=== PATIENT | female | born 1995 | race Caucasian/White ===

== ENCOUNTER 2020-04-27 11:55 | Emergency (ER) | payer SELFPAY ==
[2020-04-27 12:15] VITALS: BP 115/70; PULSE 92; RESP 16; TEMP 36.9; O2SAT 98; BMI 23.9
--- NOTE | 2020-04-27 12:26 | XR_ITS ---
WS: [id number] 3 views of the left first finger, 04/27/2020 Clinical Data: dog bite, cellulitis Comparison: None. Findings: No fractures or dislocations are seen. The soft tissues are normal. The epiphyses and joint spaces ar e not remarkable. No radiopaque foreign body is seen. XR/XR finger LT min 2V [id number] Impression: Negative left thumb.
[2020-04-27 12:27] VITALS: RESP 18
--- NOTE | 2020-04-27 12:35 | W.ED.EXTPRO ---
HPI - Extremity Problem General: Chief complaint: Extremity Injury, Upper Stated complaint: DOGBITE Time Seen by Provider: 04/27/20 12:20 History of Present Illness: HPI Narrative: Patient bit in her left thumb by her dog who is up-to-date on vaccinations but this happened about 3 days ago she has 3 puncture wounds now thumb is swollen and red. MD Complaint: extremity pain and joint pain Onset (ago): day(s) Pain Consistency: constant Location: left and upper extremity Severity scale (1-10): 7 Quality: aching Radiation: none Relieving factors: nothing Exacerbating factors: range of motion Associated symptoms: Reports no associated symptoms; Deny chest pain, fever(s) or rash Review of Systems Const: Denies: fever(s), chills or body aches Eyes: Denies: change in vision or blurry vision ENMT: Denies: throat pain or nasal congestion Card: Denies: chest pain or dyspnea on exertion Resp: Denies: dyspnea, productive cough or non-productive cough GI: Denies: abdominal pain, nausea or vomiting Musc: Denies: extremity pain Skin/Breast: Reports: other (Dog bite to left thumb now swollen red and tender); Denies: rash Neuro: Denies: headache(s) Psych: Denies: anxiety or depression Remington/Lymph: Denies: easy bruising PFSH ED PFSH: Social History (Updated 04/27/20 @ 12:19 by Liliana Zhu RN) Smoking and tobacco status: current every day smoker Current gender identity: Female Female Reproductive History: Date of last menstrual period: 03/21/20 Physical Exam Const: COMMON NORMALS: no acute distress, average body habitus and patient oriented x3 HENMT: COMMON NORMALS: normocephalic HEAD & SCALP: normal to inspection and normocephalic FACE & SINUS: normal facial exam Eye: COMMON NORMALS: conjunctivae normal GENERAL EYE: appearance normal, both eyes and all related structures CONJUNCTIVA: Yes conjunctivae normal Neck/C-Spine: COMMON NORMALS: no JVD Chest: COMMONS NORMALS: normal inspection of the chest Resp: COMMON NORMALS: normal respiratory effort and clear to auscultation bilaterally AUSCULTATION: clear to auscultation bilaterally Cardio: COMMON NORMALS: no JVD, regular rate and regular rhythm RATE: regular rate RHYTHM: regular rhythm GI: COMMON NORMALS: Normal to inspection, nondistended, normoactive bowel sounds present Extremity: COMMON NORMALS: normal to inspection and full ROM Neuro: COMMON NORMALS: patient oriented x3 Skin: OTHER: Left thumb has erythema extending from the tip down to below the base of the thumb is swollen has 3 puncture wounds on it has some drainage coming from the MIP joint area on the dorsal surface patient will does not want a move it due to discomfort. Course Vital Signs: Vital signs: Vital Signs Temperature 98.5 F 04/27/20 12:15 Pulse Rate 92 04/27/20 12:15 Respiratory Rate 18 04/27/20 12:27 Blood Pressure 115/70 04/27/20 12:15 Pulse Oximetry 98 04/27/20 12:15 Coding Level of Care Code ED Clinical Laboratory Technician for Javier Fragoso
[2020-04-27] MEDS: lidocaine 1% INJ 20 mL 2.1 ML INJECTION (12:39)
[2020-04-27] MEDS: cefTRIAXone 1,000 mg SDV 1000 MG IM (12:39)
[2020-04-27] MEDS: HYDROcodone-acetaminophen 7.5-325 mg Tablet 1 TAB PO (12:39)
[2020-04-27 13:35] VITALS: RESP 18
== END 2020-04-27 13:36 | disposition home or self-care (01) ==
PROVIDERS: Emergency Provider Nurse Practitioner Family
DX: S61.052A Open bite of left thumb without damage to nail, initial encounter (principal); W54.0XXA Bitten by dog, initial encounter; F17.210 Nicotine dependence, cigarettes, uncomplicated
CPT/HCPCS: 12345; 73140; 87070; 87077; 96372; 99281; 99283; J0696

== ENCOUNTER 2020-05-09 10:01 | Emergency (ER) | payer SELFPAY ==
[2020-05-09 10:16] VITALS: BP 117/91; PULSE 101; RESP 17; TEMP 36.3; O2SAT 99; BMI 24.7
--- NOTE | 2020-05-09 10:33 | ED_ITS ---
HPI - Extremity Problem General: Chief complaint: Skin/Abscess/Foreign Body Stated complaint: DOG BITE 2 WEEKS AGO Time Seen by Provider: 05/09/20 10:05 Source: patient Mode of arrival: ambulatory Limitations: no limitations History of Present Illness: HPI Narrative: Patient is a 24-year-old female who presents to ED today for evaluation of a dog bite to her left thumb. Patient was initially seen at our facility approximately 2 weeks ago after the incident and was placed on Augmentin. XR of the finger at the time was normal. Documentation does state there was some redness to her finger during that visit. She states she has now completed the course of the Augmentin and finger continues to be red and swollen. She is not able to bend her finger and is having trouble performing daily functions such as putting her hair in a ponytail. Complaint: extremity pain and extremity swelling Onset (ago): day(s) Location: left and upper extremity Radiation: none Relieving factors: nothing Exacerbating factors: range of motion and palpation Associated symptoms: Reports no associated symptoms Review of Systems Musc: Reports: extremity pain and extremity swelling Skin/Breast: Reports: other (puncture wounds to L thumb) Neuro: Denies: numbness in extremities, weakness in extremities or sensory changes PFSH ED PFSH: Social History (Updated 04/27/20 @ 12:19 by Liliana Zhu RN) Smoking and tobacco status: current every day smoker Current gender identity: Female Female Reproductive History: Date of last menstrual period: 03/21/20 Physical Exam Const: COMMON NORMALS: no acute distress, average body habitus, patient oriented x3, no limitations, healthy appearing, alert and well nourished Extremity: OTHER: pt with mild erythema to dorsal and volar surfaces of the proximal phalanx of her L thumb; she has multiple puncture wounds to both surfaces-puncture wound on dorsal surface with scant drainage; she has no ROM of her interphalangeal joint; she has pain with passive extension and flexion Neuro: COMMON NORMALS: patient oriented x3 and no sensory deficits noted SENSORIUM/ORIENTATION: Yes alert Skin: OTHER: see extremity assessment Course Vital Signs: Vital signs: Vital Signs Temperature 97.3 F L 05/09/20 10:16 Pulse Rate 101 H 05/09/20 10:16 Respiratory Rate 17 05/09/20 10:16 Blood Pressure 117/91 05/09/20 10:16 Pulse Oximetry 99 05/09/20 10:16 MDM - Extremity (Nontraumatic) MDM Narrative: Medical decision making narrative: We have contacted [facility] with Dr. Edwards sex offender treatment professional-their office was made aware of pts findings and will contact her soon with appointment date and time. Discharge Plan Discharge Patient Disposition: Home Clinical Impression: Dog bite of left thumb with infection Qualifiers: Encounter type: subsequent encounter Qualified Code(s): S61.052D - Open bite of left thumb without damage to nail, subsequent encounter Condition: Stable Prescriptions: New metronidazole [Flagyl] 500 mg tablet 500 mg PO BID 7 Days Qty: 14 RF: 0 sulfamethoxazole-trimethoprim [Bactrim DS] 800-160 mg tablet 1 tab PO BID 7 Days Qty: 14 RF: 0 No Action Augmentin 875-125 mg tablet 1 tab PO BID Qty: 14 RF: 0 hydrocodone-acetaminophen 5-325 mg tablet 1 tab PO Q6H PRN (Reason: pain) Qty: 14 RF: 0 Discharge Orders: Discharge Order (Routine); Ordered 05/09/20 Ordered By: Codie De La Rosa Activity Restrictions/Additional Instructions: As discussed [facility] should be contacting you very soon to set you up with your appointment for follow-up. If you have not heard from them by tomorrow evening please contact the ED so we can further work on this. Coding Level of Care Code ED Sweatband Decorating Machine Operator for Javier Fwkavon Exam Expanded Problem Focused
[2020-05-09 11:23] VITALS: BP 122/59; PULSE 98; RESP 16; O2SAT 98
--- NOTE | 2020-05-15 09:19 | DCPLANNER ---
heavy equipment service manager had message to speak with patient about getting established with a primary care physician. heavy equipment service manager called [phone], unable to speak with patient, left a voicemail for patient to return window caser phone call.
== END 2020-05-09 11:25 | disposition home or self-care (01) ==
PROVIDERS: Emergency Provider Physician Assistant
DX: S61.052A Open bite of left thumb without damage to nail, initial encounter (principal); W54.0XXA Bitten by dog, initial encounter; F17.210 Nicotine dependence, cigarettes, uncomplicated
CPT/HCPCS: 12345; 99282

== ENCOUNTER 2022-06-02 20:52 | Emergency (ER) | payer MEDICAID, SELFPAY ==
[2022-06-02 21:15] VITALS: BP 119/85; PULSE 78; RESP 16; TEMP 36.4; O2SAT 99
--- NOTE | 2022-06-02 23:45 | W.ED.DENTAL ---
HPI - Dental/Oral General: Chief complaint: Dental/Oral Stated complaint: Tooth Abscess Time Seen by Provider: 06/02/22 23:35 History of Present Illness: 26-year-old female patient presents to the emergency department with right upper dental pain. Patient states this is been ongoing for 3 days and she woke up today with some mild facial swelling. Patient denies any fever. Patient states she was unable to get into her dentist. Associated symptoms: Denies ear or mastoid pain, fever(s), odynophagia or tongue swelling Review of Systems Const: Denies: fever(s), chills, body aches, change in appetite, change in weight, fatigue, malaise or diaphoresis Eyes: Denies: change in vision, blurry vision, blind spots, photophobia, eye discomfort, eye discharge, eye redness, floaters or seeing flashes ENMT: Denies: throat pain, uvular edema, enlarged tonsils, odynophagia, hoarseness, mouth pain, swelling of lips/tongue, oral sores, bleeding gums, dry mouth, ear or mastoid pain, ear discharge, change in hearing, tinnitus, disequilibrium, nasal discharge, nasal congestion, post nasal drip or sinus pain Card: Denies: chest pain, palpitations, irregular heart rhythm, edema, swelling of feet/ankles, lightheadedness, syncope, pre-syncope, dyspnea on exertion, orthopnea, leg pain with exertion or acrocyanosis Resp: Denies: dyspnea, productive cough, non-productive cough, wheezing, stridor, pain on inspiration, change in phlegm color, hemoptysis or chest congestion GI: Denies: abdominal pain, nausea, vomiting, hematemesis, dysphagia, diarrhea, constipation, GI cramping, change in bowel habits or rectal pain : Denies: flank pain, difficulty voiding, dysuria, urinary frequency, urinary urgency, urinary hesitancy or hematuria Musc: Denies: neck pain, back pain, extremity pain, extremity swelling, joint pain, joint swelling, joint redness, joint warmth or deformity Skin/Breast: Denies: rash, pruritus, erythema, sores, new lesions, changes in skin color or dry skin Neuro: Denies: headache(s), numbness in extremities, weakness in extremities, sensory changes, lack of coordination, difficulty walking, frequent falls, dizziness, vertigo, confusion, behavioral changes, Slurred speech present, difficulty communicating thoughts or seizure-like activity Psych: Denies: anxiety, depression, suicidal ideation or homicidal ideation Endo: Denies: polyuria, polydipsia, tired all the time, cold intolerance, excessive sweating, flushing, hot flashes or heat intolerance Remington/Lymph: Denies: easy bruising, easy bleeding, petechiae, purpura, enlarged lymph nodes or tender lymph nodes All/Imm: Denies: urticaria, throat swelling, tongue swelling, facial swelling, acute wheezing or itchy eyes PFSH ED PFSH: Social History Smoking and tobacco status: current every day smoker Current gender identity: Female Female Reproductive History: Date of last menstrual period: 03/21/20 Physical Exam Const: COMMON NORMALS: no acute distress, patient oriented x3, healthy appearing and well nourished GENERAL APPEARANCE: cooperative, comfortable, well kempt and well developed; not ill appearing ORIENTATION/CONSCIOUSNESS: Yes awake HENMT: COMMON NORMALS: normocephalic, hearing grossly normal bilaterally, external ears normal, EAC's normal, TM's normal bilaterally, Normal external nose present, Normal nasal mucous membranes and turbinates present and moist oral mucous membranes HEAD & SCALP: normal to inspection and normocephalic FACE & SINUS: normal facial exam, sinuses nontender and face symmetric NOSE: Normal external nose present, Normal nares present, Normal nasal mucous membranes and turbinates present, No nasal discharge present and Abnormal external nose present EXTERNAL EAR: Yes external ears normal and Yes mastoids normal EXTERNAL AUDITORY CANAL: EAC's normal TYMPANIC MEMBRANE: TM's normal bilaterally MOUTH: Normal oral and palatal mucosa present, lip normal, tongue normal and Normal salivary glands and ducts present THROAT: no uvular edema Eye: COMMON NORMALS: Equal, round and reactive pupils present, EOMs intact bilaterally, conjunctivae normal, no scleral icterus and no papilledema GENERAL EYE: appearance normal, both eyes and all related structures EYELID: eyelids normal CONJUNCTIVA: Yes conjunctivae normal SCLERA: sclerae normal CORNEA: Yes corneas normal PUPIL: Yes Equal, round and reactive pupils present DIRECT OPHTHALMOSCOPY: Yes no papilledema Neck/C-Spine: COMMON NORMALS: full ROM, no lymphadenopathy, supple, no JVD and Thyroid normal GENERAL: Yes normal visual inspection and Yes trachea midline THYROID: Thyroid normal CERVICAL SPINE: Yes cervical ROM normal Lymph: LYMPHATIC: no lymphadenopathy noted and no lymphedema noted Resp: COMMON NORMALS: normal respiratory effort, No retractions, No use of accessory muscles and clear to auscultation bilaterally EFFORT & INSPECTION: Yes able to speak in complete sentences and Yes symmetric chest movement AUSCULTATION: clear to auscultation bilaterally Cardio: COMMON NORMALS: no JVD, regular rate and regular rhythm RATE: regular rate RHYTHM: regular rhythm Neuro: COMMON NORMALS: patient oriented x3 and CN's II-XII intact bilaterally Psych: COMMON NORMALS: mental status grossly normal, Normal thought process present, cooperative, normal affect, speech normal, activity/motor behavior normal, denies hallucinations, denies homicidal ideation and denies suicidal ideation APPEARANCE: Yes grossly normal and Yes well kempt ATTITUDE: Yes calm ACTIVITY/MOTOR BEHAVIOR: Yes appropriate eye contact SPEECH: Yes normal speech THOUGHT PROCESS: Normal thought process present THOUGHT CONTENT: Yes Normal thought content present ATTENTION/CONCENTRATION: Yes attention grossly intact MEMORY/COGNITION: Yes memory grossly intact INSIGHT: Good insight present (Psych) JUDGEMENT: Good judgement present (Psych) Skin: COMMON NORMALS: no rashes or lesions noted, no wounds, turgor normal, no jaundice, no petechiae and no mottling GENERAL SKIN EXAM: no rashes or lesions noted and turgor normal Course Vital Signs: Vital signs: Vital Signs Temperature 97.6 F 06/02/22 21:15 Pulse Rate 78 06/02/22 21:15 Respiratory Rate 16 06/02/22 21:15 Blood Pressure 119/85 06/02/22 21:15 Pulse Oximetry 99 06/02/22 21:15 Oxygen Delivery Me thod 06/02/22 21:15 [facility] - Dental/Oral Medical Decision Making 26-year-old female patient presents to the emergency department with right upper dental pain. Patient states this is been ongoing for 3 days and she woke up today with some mild facial swelling. Patient denies any fever. Patient states she was unable to get into her dentist. Patient is well-appearing nontoxic and in no acute distress. Patient is well-appearing nontoxic and in no acute distress. Patient does have some mild facial swelling noted to the right side. Patient does have extensive dental caries noted throughout. Patient does have erythema and pain to the right upper gum. There is no obvious abscess there is no area of fluctuation or pointing noted. Patient does not have any mastoid tenderness. Patient does not have any evidence of Tj's angina. I will place patient on clindamycin at this time and have her follow-up with her dentist Discharge Plan Discharge Patient Disposition: Home Condition: Stable Prescriptions: New clindamycin HCl 300 mg capsule 300 mg PO Q6H 7 Days Qty: 28 0RF No Action Augmentin 875-125 mg tablet 1 tab PO BID Qty: 14 0RF hydrocodone-acetaminophen 5-325 mg tablet 1 tab PO Q6H PRN (Reason: pain) Qty: 14 0RF Discharge Orders: Discharge ED (Routine); Ordered 06/02/22 Ordered By: Susan Price Discharge Diet: Advance as tolerated Discharge Activity: Increase activity as tolerated Patient Instructions: Opioid Safety, Pain Management, Toothache (ED) Activity Restrictions/Additional Instructions: Please take medication as prescribed. Please return to the ER with any worsening of condition. Please follow-up with dentist in the next 3 to 5 days. Coding Level of Care Code ED Laboratory Technology Teacher for Javier Fragoso
[2022-06-03] VITALS: BP 119/85; PULSE 78; RESP 16; TEMP 36.4; O2SAT 99
[2022-06-03] MEDS: clindamycin 150 mg Capsule 300 MG PO (00:09)
[2022-06-03] MEDS: HYDROcodone-acetaminophen 5-325 mg Tablet 1 TAB PO (00:09)
[2022-06-03 00:12] VITALS: BP 119/85; PULSE 78; RESP 16; TEMP 36.4; O2SAT 99
== END 2022-06-03 00:13 | disposition home or self-care (01) ==
PROVIDERS: Emergency Provider Registered Nurse
DX: K08.89 Other specified disorders of teeth and supporting structures (principal); F17.210 Nicotine dependence, cigarettes, uncomplicated
CPT/HCPCS: 99283

== ENCOUNTER → 2022-07-01 12:01 | Outpatient (BNVA) | payer MEDICAID, SELFPAY | PROVIDERS: PCP Family Medicine; Visit Provider Registered Nurse Neonatal Intensive Care | DX: J02.9 Acute pharyngitis, unspecified (principal) | CPT/HCPCS: 87880 ==

== ENCOUNTER 2022-11-14 15:14 | Emergency (ER) | payer MEDICAID, SELFPAY ==
[2022-11-14 15:19] VITALS: BP 128/71; PULSE 106; RESP 18; TEMP 36.7; O2SAT 96
--- NOTE | 2022-11-14 16:09 | ED_ITS ---
HPI - Wound/Laceration General: Chief Complaint: Wound/Laceration Stated Complaint: deep Nose laceration Time Seen by Provider: 11/14/22 16:03 History of Present Illness: Patient is a 27-year-old female who comes to the ED with laceration to right side of nose. Patient says she was cutting some packaging with a knife. She was accidentally cutting towards herself and knife slipped and the right nare of nose. Bleeding stopped on arrival here to the ED. She is up-to-date on her tetanus. Associated symptoms: Denies chills, fever(s), nausea or vomiting Review of Systems Const: Denies: fever(s), chills or fatigue Eyes: Denies: change in vision or eye discomfort ENMT: Denies: throat pain, odynophagia, nasal discharge or nasal congestion Card: Denies: chest pain, palpitations, edema, swelling of feet/ankles, dyspnea on exertion or orthopnea Resp: Denies: dyspnea, productive cough or non-productive cough GI: Denies: abdominal pain, nausea, vomiting, diarrhea, constipation or hematochezia : Denies: flank pain, dysuria or hematuria Musc: Denies: neck pain, back pain or extremity swelling Skin/Breast: Reports: new lesions (cut to right nare of nose); Denies: rash Neuro: Denies: headache(s), numbness in extremities or weakness in extremities [facility] ED PFSH: Medical History No pertinent family history Surgical History No pertinent past surgical history Social History Smoking and tobacco status: current every day smoker Current gender identity: Female Physical Exam Const: COMMON NORMALS: no acute distress, patient oriented x3 and alert GENERAL APPEARANCE: cooperative and comfortable HENMT: COMMON NORMALS: normocephalic HEAD & SCALP: normocephalic NOSE: Abnormal external nose present nasal abrasion (Superficial linear 0.5 cm abrasion to external right nare. no active bleeding.) MOUTH: Normal oral and palatal mucosa present THROAT: posterior oropharynx normal and uvula midline OTHER: Superficial linear 0.5 cm abrasion to external right nare. no active bleeding. Small puncture wound noted on inside of right nare mucosa. No active bleeding from puncture wound site. Neck/C-Spine: COMMON NORMALS: supple GENERAL: Yes normal visual inspection Resp: COMMON NORMALS: normal respiratory effort, No retractions, No use of accessory muscles and clear to auscultation bilaterally AUSCULTATION: clear to auscultation bilaterally Cardio: COMMON NORMALS: regular rate, regular rhythm, S1 normal heart sound present, S2 normal heart sound present, No gallops present (Cardio), No clicks present (Cardio), No murmurs present (Cardio) and Peripheral pulses 2+ throughout RATE: regular rate RHYTHM: regular rhythm HEART SOUNDS: S1 normal heart sound present and S2 normal heart sound present PERIPHERAL PULSES: Peripheral pulses 2+ throughout GI: COMMON NORMALS: Normal to inspection, nondistended, normoactive bowel sounds present, Soft to palpation, non-tender and no masses PALPATION: Yes Soft to palpation : COMMON NORMALS: Yes no CVA tenderness BLADDER/KIDNEY EXAM: Yes no CVA tenderness Back/Pelvis: COMMON NORMALS: no CVA tenderness Neuro: COMMON NORMALS: patient oriented x3 SENSORIUM/ORIENTATION: Yes alert GAIT: Yes Normal gait present Skin: GENERAL SKIN EXAM: dry skin Course Vital Signs: Vital signs: Vital Signs Temperature 98.0 F 11/14/22 15:19 Pulse Rate 106 H 11/14/22 15:19 Respiratory Rate 18 11/14/22 15:19 Blood Pressure 128/71 11/14/22 15:19 Pulse Oximetry 96 11/14/22 15:19 Oxygen Delivery Me thod 11/14/22 15:19 MDM - Wound/Laceration Medical Decision Making Patient is a 27-year-old female comes to the ED with cut to nose. Patient was opening some packaging with a knife and it slipped and cut right side of nose. She is up-to-date on her tetanus. Vitals are stable. Upon exam patient is a superficial abrasion to the external part of the right nare. She has a small puncture wound to the inside of right nare with no active bleeding noted. Nurse irrigated the wound extensively with normal saline. No sutures or closure required and we will allow it to heal by second intention. Patient was instructed on how to take care of wound and to apply triple antibiotic ointment or Vaseline over wound daily after cleaning with soap and water. She is also instructed how to control any bleeding that could occur. She was given strict return to ED precautions. She was sent home with a prophylactic prescription of Keflex due to puncture wound on the inside of nose. Follow-up with PCP within the next week for reevaluation. Patient understood and agreed with plan. Discharge Plan Discharge Patient Disposition: Home Clinical Impression: Puncture wound of nose Qualifiers: Encounter type: initial encounter Qualified Code(s): S01.23XA - Puncture wound without foreign body of nose, initial encounter Abrasion of nose Qualifiers: Encounter type: initial encounter Qualified Code(s): S00.31XA - Abrasion of nose, initial encounter Condition: Stable Prescriptions: New cephalexin 500 mg capsule 500 mg PO Q6H 7 Days Qty: 28 0RF No Action fluticasone propionate [Flonase Allergy Relief] 50 mcg/actuation spray,suspension 1 spray intranasal DAILY Qty: 16 0RF Rx Instructions: administer into each nostril Discharge Orders: Discharge ED (Routine); Ordered 11/14/22 Ordered By: Cesar Madden Referrals: Xavi Vera MD [Primary Care Provider] - Discharge Diet: Regular Discharge Activity: Resume usual activity Activity Restrictions/Additional Instructions: Take full course of antibiotics as prescribed. Follow-up with medical provider as directed in the next 5 to 7 days for reevaluation. Clean nose area daily with soap and water, then apply some triple antibiotic ointment on abrasion and puncture wound of nose. He had any reoccurring bleeding you can pack right nare with some gauze or tissue and use nasal clamp. Keep nasal clamp on for about 15 minutes then remove and if you are still having bleeding reapply for another 15 minutes. If you cannot control bleeding after doing 2 rounds of using nasal clamp you can come back to the ED for reevaluation. Take medications as prescribed. Return to the ER or your medical provider if condition worsens. Please read and understand discharge instructions. Thank you for choosing [facility] for your healthcare needs today. Please realize this is an emergency room and that we are providing you with a medical screening exam and this may not be complete and all inclusive of all the testing and or work up that you may need to determine your ailment or severity of your illness. It is very important that you follow up as instructed or that you return to the Emergency Department should you have concerns or if your condition changes or worsens in any way. Coding Level of Care Code ED Composition Siding Worker for Javier Fragoso
[2022-11-14] MEDS: neomycin-poly-bacitracin oint 28 gm 1 APPLIC TOPICAL (16:52)
== END 2022-11-14 17:04 | disposition home or self-care (01) ==
PROVIDERS: Emergency Provider Physician Assistant; PCP Family Medicine
DX: S01.23XA Puncture wound without foreign body of nose, initial encounter (principal); S00.31XA Abrasion of nose, initial encounter; F17.210 Nicotine dependence, cigarettes, uncomplicated; W26.0XXA Contact with knife, initial encounter
CPT/HCPCS: 99283

== ENCOUNTER 2023-08-28 09:16 | Emergency (ER) | payer MEDICAID, SELFPAY ==
[2023-08-28 09:20] VITALS: BP 131/78; PULSE 97; RESP 18; TEMP 36.6; O2SAT 100; BMI 28.3
--- NOTE | 2023-08-28 09:23 | ECG_ITS ---
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 Measurements Intervals [place] Rate: 98 P: 66 NE: 144 QRS: 78 QRSD: 74 T: 54 QT: 353 QTc: 451 Interpretive Statements SINUS RHYTHM No previous ECG available for comparison Electronically Signed On 08-28-2023 13:43:43 AUTO PAINTER by Iron Patricia M.D. [email or web address]
[2023-08-28 09:24] VITALS: BP 131/78; PULSE 94; RESP 18; O2SAT 100
--- NOTE | 2023-08-28 09:25 | XR_ITS ---
WS: [id number] Exam: XR chest 1V portable [id number] Date/Time of Exam: 08/28/2023 9:25 AM Reason For Exam: chest pain No priors. Lungs are clear and fully expanded. Normal cardiomediastinal silhouette. No pleural effusions. IMPRESSION: 1. Normal chest.
--- NOTE | 2023-08-28 09:25 | W.ED.CHESTPA ---
HPI - Chest Pain General: Chief Complaint: Chest Pain Stated Complaint: chest pain Time Seen by Provider: 08/28/23 09:19 Source: patient Mode of arrival: ambulatory Limitations: no limitations History of Present Illness: Patient is a 27-year-old female with no known past medical history here for complaints of chest pain started yesterday while at rest. She states since onset pain has been constant and worsening in nature. She is not having any shortness of breath or difficulty breathing. No recent illness, cough, or congestion. She has no known cardiac or pulmonary history. She denies drug use. She does report drinking approximately one energy drink a day. She does admit to alcohol use. She denies nausea, vomiting, diarrhea. There is no radicular nature to her discomfort. She feels like pain is worse when she lies flat and with movement. No swelling to her lower extremities, calf pain, PND, or orthopnea. MD complaint: chest pain Onset (ago): day(s) (yesterday) Timing of current episode: constant Prior episodes: No Onset: during rest Pain location: substernal and epigastric Pain radiation: none Severity: severe Relieving factors: nothing Exacerbating factors: other (lying flat, movement, deep inhalation) Associated symptoms: Deny abdominal pain, dyspnea, fever(s), nausea, palpitations, syncope or vomiting Treatment prior to arrival: none Risk Factors: Coronary artery disease risk factors: none Thoracic aortic dissection risk factors: none Related Data: On Oral Contraceptives: No Review of Systems Const: Denies: fever(s), chills, body aches, fatigue or malaise Eyes: Denies: change in vision or blurry vision ENMT: Denies: throat pain, odynophagia, nasal discharge, nasal congestion or sinus pain Card: Reports: chest pain; Denies: palpitations, irregular heart rhythm, edema, swelling of feet/ankles, lightheadedness, syncope, pre-syncope, dyspnea on exertion, orthopnea, leg pain with exertion or acrocyanosis Resp: Denies: dyspnea, productive cough, non-productive cough, wheezing, pain on inspiration, change in phlegm color, hemoptysis or chest congestion GI: Denies: abdominal pain, nausea, vomiting, heartburn or diarrhea : Denies: dysuria Musc: Denies: neck pain, back pain, extremity swelling, joint pain, joint redness or joint warmth Skin/Breast: Denies: rash Neuro: Denies: headache(s), numbness in extremities, weakness in extremities or sensory changes PFSH ED PFSH: Medical History No pertinent family history Surgical History No pertinent past surgical history Social History Smoking and tobacco/nicotine status: current every day tobacco/nicotine user Current gender identity: Female Physical Exam Const: COMMON NORMALS: average body habitus, patient oriented x3, no limitations, healthy appearing, alert and well nourished GENERAL APPEARANCE: cooperative and in distress (appears uncomfortable secondary to pain) ORIENTATION/CONSCIOUSNESS: Yes awake, Yes oriented to person, Yes oriented to place and Yes oriented to time HENMT: COMMON NORMALS: normocephalic and atraumatic HEAD & SCALP: normal to inspection, normocephalic and atraumatic FACE & SINUS: normal facial exam Eye: COMMON NORMALS: no scleral icterus GENERAL EYE: appearance normal, both eyes and all related structures Neck/C-Spine: COMMON NORMALS: full ROM, no lymphadenopathy, supple, no meningeal signs, no JVD and No carotid bruits Chest: COMMONS NORMALS: normal inspection of the chest Resp: COMMON NORMALS: normal respiratory effort and clear to auscultation bilaterally AUSCULTATION: clear to auscultation bilaterally Cardio: COMMON NORMALS: no JVD, regular rate and regular rhythm RATE: regular rate RHYTHM: regular rhythm GI: COMMON NORMALS: Normal to inspection, nondistended, normoactive bowel sounds present, Soft to palpation, No hepatosplenomegaly present and no masses INSPECTION: Yes normal to inspection AUSCULTATION: Yes normoactive bowel sounds PALPATION: Yes Soft to palpation, Yes Tenderness to palpation present (GI) (epigastric abdominal pain), No Guarding due to palpation present (GI), No Rigid due to palpation and Yes No hepatosplenomegaly present : COMMON NORMALS: Yes no CVA tenderness BLADDER/KIDNEY EXAM: Yes no CVA tenderness Back/Pelvis: COMMON NORMALS: no CVA tenderness and thoracic and lumbar spine normal to inspection Extremity: COMMON NORMALS: normal to inspection, capillary refill normal, no clubbing, cyanosis or edema, no calf tenderness and no pedal edema GENERAL: Yes normal exam except as noted Neuro: PEDRO COMA SCALE: document GCS findings Pedro coma scale eye opening: Spontaneous [place] coma scale verbal response: Orientated Pedro coma scale motor response: Obey commands Pedro coma scale total score: 15 COMMON NORMALS: patient oriented x3, moves all extremities, no focal motor deficits and no sensory deficits noted SENSORIUM/ORIENTATION: Yes alert, Yes oriented to person, Yes oriented to place and Yes oriented to time MENINGEAL SIGNS: Yes no meningeal signs Skin: COMMON NORMALS: no rashes or lesions noted GENERAL SKIN EXAM: no rashes or lesions noted Course Vital Signs: Vital signs: Vital Signs Temperature 97.8 F 08/28/23 09:20 Pulse Rate 94 08/28/23 09:24 Respiratory Rate 18 08/28/23 09:24 Blood Pressure 131/78 08/28/23 09:24 Pulse Oximetry 100 08/28/23 09:24 Oxygen Delivery Me thod Room Air 08/28/23 09:20 MDM - Chest Pain Medical Decision Making Patient here for chest pain beginning yesterday. She has a normal baseline and repeat EKG. Her vitals are completely normal. Blood work overall is fairly unremarkable apart from an elevated white count at 19.78. Her CXR is normal. She has not otherwise been sick. Baseline troponin is normal. CT scan ordered due to complaints of upper abdominal pain on exam and leukocytosis. This was completely unremarkable. She does report drinking at least a 12 pack of beer a week. Symptoms could be secondary to gastritis. We spoke about trialing OTC PPI/H2 to see if this helps with symptoms. I do not have any suspicion for acute coronary syndrome, dissection, PE or any other emergent cause for her chest pain. Will place referral with case management to get her set up with a primary care provider. Lab Data 08/28/23 09:34 08/28/23 09:34 Laboratory Results WBC 19.78 10^3/uL (3.29-11.43) H 08/28/23 09:34 RBC 4.41 10^6/uL (3.85-5.65) 08/28/23 09:34 Hgb 13.50 g/dL (11.27-16.99) 08/28/23 09:34 Hct 40.7 % (36-47) 08/28/23 09:34 MCV 92.3 fl (85-98) 08/28/23 09:34 MCH 30.6 pg (27-33) 08/28/23 09:34 MCHC 33.2 g/dL (30-55) 08/28/23 09:34 RDW 13.1 % (12.1-15.1) 08/28/23 09:34 Plt Count 254 10^3/cmm (157-399) 08/28/23 09:34 MPV 10.3 fL (7.4-10.4) 08/28/23 09:34 Neut % (Auto) 77.0 % 08/28/23 09:34 Lymph % (Auto) 11.8 % 08/28/23 09:34 Imperial % (Auto) 9.5 % 08/28/23 09:34 Eos % (Auto) 0.6 % 08/28/23 09:34 Baso % (Auto) 0.5 % 08/28/23 09:34 Neut # (Auto) 15.25 10^3/uL (1.8-7.7) H 08/28/23 09:34 Lymph # (Auto) 2.3 10^3/uL (0.8-4.8) 08/28/23 09:34 Imperial # (Auto) 1.9 10^3/uL (0.2-0.9) H 08/28/23 09:34 Eos # (Auto) 0.1 10^3/uL (0.0-0.8) 08/28/23 09:34 Baso # (Auto) 0.1 10^3/uL (0.0-0.1) 08/28/23 09:34 Nucleated RBC % (auto) 0 % 08/28/23 09:34 Nucleated RBCs # 0.0 /100WBC 08/28/23 09:34 Sodium 135 mmol/L (136-145) L 08/28/23 09:34 Potassium 3.9 mmol/L (3.5-5.1) 08/28/23 09:34 Chloride 101 mmol/L (98-107) 08/28/23 09:34 Carbon Dioxide 21 mmol/L (22-29) L 08/28/23 09:34 Anion Gap 16.9 (5-19) 08/28/23 09:34 BUN 8 mg/dL (6-20) 08/28/23 09:34 Creatinine 0.5 mg/dL (0.5-0.9) 08/28/23 09:34 GFR Calculation 145.9 mL/min (90-130) H 08/28/23 09:34 Glucose 109 mg/dL (65-115) 08/28/23 09:34 Calculated Osmolality 279 mOsm/kg (285-295) L 08/28/23 09:34 Calcium 9.0 mg/dL (8.5-10.5) 08/28/23 09:34 Total Bilirubin 0.9 mg/dL (0.15-1.2) 08/28/23 09:34 AST 13 U/L (0-32) 08/28/23 09:34 ALT 14 U/L (0-33) 08/28/23 09:34 Alkaline Phosphatase 93 U/L (35-105) 08/28/23 09:34 Troponin T Baseline < 6 ng/L (0-10) 08/28/23 09:34 Total Protein 6.6 g/dL (6.6-8.7) 08/28/23 09:34 Albumin 4.4 g/dL (3.5-5.2) 08/28/23 09:34 Globulin 2.2 g/dL (1.3-4.6) 08/28/23 09:34 Lipase 27 U/L (13-60) 08/28/23 09:34 Ethyl Alcohol < 10 mg/dL (0-10) 08/28/23 09:34 All radiology interpretation(s) finalized by discharge Discharge Plan Discharge Patient Disposition: Home Clinical Impression: Non-cardiac chest pain Condition: Stable Prescriptions: No Action Tylenol Ex Str Rapid Release 500 mg Tablet 1,000 mg PO Q6H PRN (Reason: Pain) Benadryl 25 mg Capsule 25 mg PO .ONE TIME DOSE Ventolin HFA 90 mcg/actuation Hfa Aerosol Inhaler 2 puff INHALATION QID PRN (Reason: Shortness Of Breath) Discharge Orders: Discharge ED (Routine); Ordered 08/28/23 Ordered By: Codie De La Rosa Referrals: Xavi Vera MD [Primary Care Provider] - Patient Instructions: Noncardiac Chest Pain (ED) Activity Restrictions/Additional Instructions: As we discussed you may trial yourself on [id number]-[id number] medication such as omeprazole/pantoprazole over the next 2 weeks to see if this helps with symptoms. Discontinue alcohol use, spicy, or salty foods. I will place a referral with case management to get you set up with a primary care provider. You may return to the emergency department for worsening or severe abdominal, chest pain, severe shortness of breath or difficulty breathing, palpitations, feeling like you are going to pass out, fevers, repetitive episodes of vomiting, or any other concerns you may have. Coding Level of Care Code ED Workplace Trainer And Assessor for Javier Fragoso
[2023-08-28] MEDS: lidocaine 2% viscous 15 ML, aluminum-mag hydrox-simethicon 30 ML, sucralfate oral liq 1 GM PO (09:37)
[2023-08-28 09:50] LABS: Basophils # 0.1 10^3/uL (0.0-0.1); Basophils % 0.5 %; Eosinophils # 0.1 10^3/uL (0.0-0.8); Eosinophils % 0.6 %; Hematocrit 40.7 % (36-47); Lymphocytes # 2.3 10^3/uL (0.8-4.8); Lymphocytes % 11.8 %; Mean Corpuscular HGB Conc 33.2 g/dL (30-55); Mean Corpuscular Hemoglobin 30.6 pg (27-33); Mean Corpuscular Volume 92.3 fl (85-98); Mean Platelet Volume 10.3 fL (7.4-10.4); Monocytes # 1.9 10^3/uL (0.2-0.9); Monocytes % 9.5 %; Neutrophils # 15.25 10^3/uL (1.8-7.7); Nucleated Red Blood Cells % 0 %; Platelet Count 254 10^3/cmm (157-399); Red Blood Count 4.41 10^6/uL (3.85-5.65); Red Cell Distribution Width 13.1 % (12.1-15.1); White Blood Count 19.78 10^3/uL (3.29-11.43)
[2023-08-28 10:02] LABS: Alanine Aminotransferase 14 U/L (0-33); Albumin Level 4.4 g/dL (3.5-5.2); Alkaline Phosphatase 93 U/L (35-105); Anion Gap 16.9 (5-19); Aspartate Amino Transferase 13 U/L (0-32); Blood Urea Nitrogen 8 mg/dL (6-20); Carbon Dioxide 21 mmol/L (22-29); Chloride 101 mmol/L (98-107); Creatinine Clr Calc Pharmacy 158.4818; Globulin 2.2 g/dL (1.3-4.6); Glomerular Filtration Rate 145.9 mL/min (90-130); Glucose 109 mg/dL (65-115); Lipase 27 U/L (13-60); Osmolality Calculated 279 mOsm/kg (285-295); Potassium 3.9 mmol/L (3.5-5.1); Sodium 135 mmol/L (136-145); Total Bilirubin 0.9 mg/dL (0.15-1.2); Total Protein 6.6 g/dL (6.6-8.7)
[2023-08-28 10:03] LABS: Troponin(5th) Baseline < 6 ng/L (0-10)
[2023-08-28 10:05] LABS: Alcohol Level < 10 mg/dL (0-10)
--- NOTE | 2023-08-28 10:10 | CT_ITS ---
WS: [id number] CT scan of the abdomen and pelvis with IV contrast. Additional two-dimensional coronal and sagittal r econstruction was performed. 08/28/2023 Clinical Data: upper ab/chest pain; elevated white count Comparison: CT abdomen pelvis, 04/11/2010 DLP: 590.[address] scans at [facility] use at least one of these dose optimization techniques: automated e xposure control; mA and/or kV adjustment per patient size (includes targeted exams where dose is matc hed to clinical indication); or iterative reconstruction. Findings: The lower lungs show no nodules, masses or effusions. The liver, gallbladder, spleen, adrenal glands and pancreas are normal. The kidneys show equal bilateral contrast excretion with no cyst or masses. The abdominal aorta is normal in size. No appendicitis or diverticulitis is seen. The stomach, small bowel and colon are unremarkable. No ab scess, adenopathy, ascites, mass, obstruction or free air is seen. The bladder is unremarkable. No inguinal hernia is seen. The uterus and ovaries show no abnormalities . The bones of the lower thorax, lumbar spine, pelvis, and hips are normal. Impression: Negative CT scan of the abdomen and pelvis.
[2023-08-28] MEDS: morphine 4 mg/mL SDV 1 mL IVP (11:06)
[2023-08-28] MEDS: ondansetron 2 mg/ML SDV 2 mL 4 MG IVP (11:06)
--- NOTE | 2023-08-28 11:40 | ECG_ITS ---
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 Measurements Intervals [place] Rate: 86 P: 64 CO: 140 QRS: 69 QRSD: 86 T: 40 QT: 380 QTc: 455 Interpretive Statements SINUS RHYTHM Compared to ECG 08/28/2023 09:23:00 No significant changes Electronically Signed On 08-28-2023 13:44:41 SOFTWARE QUALITY SPECIALIST by Iron Patricia M.D. [id number]
[2023-08-28 11:56] LABS: Troponin 5 2HR Delta 0.00001 ABS# (0-10)
== END 2023-08-28 12:00 | disposition home or self-care (01) ==
PROVIDERS: Emergency Provider Physician Assistant; PCP Family Medicine
DX: R07.89 Other chest pain (principal); Z72.0 Tobacco use
CPT/HCPCS: 71045; 74177; 80053; 80307; 83690; 84484; 85025; 93005; 96374; 96375; 99285; J2270; J2405; Q9967

== ENCOUNTER 2024-12-08 09:30 | Outpatient (CLI) | payer MEDICAID, SELFPAY ==
--- NOTE | 2024-12-08 09:36 | CTR_ITS ---
PROCEDURE INFORMATION: Exam: CT Chest With Contrast; Diagnostic Exam date and time: 12/08/2024 9:53 AM Age: 29 years old Clinical indication: Abnormal findings; Lung mass or nodule; Not specified; Additional info: Mass of R lower lobe of lung TECHNIQUE: Imaging protocol: Diagnostic computed tomography of the chest with contrast. Radiation optimization: All CT scans at this facility use at least one of these dose optimization techniques: automated exposure control; mA and/or kV adjustment per patient size (includes targeted exams where dose is matched to clinical indication); or iterative reconstruction. Contrast material: OMNI 350; Contrast volume: 100 ml; Contrast route: INTRAVENOUS (IV); COMPARISON: CR XR chest 2V* [id number] 11/15/2024 1:58 PM RADIATION DOSE METRICS: Total DLP (mGy-cm): 239.59 FINDINGS: Lungs: Soft tissue prominence or mass is seen inferior right hilum extending inferiorly and medially within the lower right lung in a paravertebral location. Greatest measurement on axial series 3, image 29 is 3 x 2.5 cm. Greatest measurement on coronal series 6, image 17 is 6 x 2.5 cm. Greatest measurement on sagittal series 7, image 43 is 6 x 2.5 cm. Axial lung windows demonstrate small amount of surrounding ground-glass opacity and linear or bandlike opacity within the adjacent inferior medial lower right lung, likely atelectasis. Mass involvement of lymph nodes inferior right hilum. Suggestion of subcarinal lymph node involvement. Likely narrowing of involved lower lobe bronchi at this level. No other mass or significant infiltrate within the lungs. Small amount of subpleural cystic or emphysematous change upper right lung. No pleural effusion or pneumothorax. Pleural spaces: See Lungs finding. Heart: No cardiomegaly. No pericardial effusion. No coronary artery calcification. Lymph nodes: See Lungs finding. Vasculature: Unremarkable. No aortic aneurysm. Bones/joints: Bone windows show no acute osseous abnormality. Soft tissues: Unremarkable. CT/CT chest w con* [id number] IMPRESSION: Findings suggesting soft tissue mass inferior right hilum/infrahilar medial lower right lung in a right paravertebral location, measuring approximately 6 x 3 x 2.5 cm with lymph node involvement inferior right hilum and subcarinal mediastinum, as noted above. Malignancy is the diagnosis of exclusion.
[2024-12-08] MEDS: iohexol 350 mg/mL 500 mL Btl (per mL) IV (10:00)
== END 2024-12-08 09:31 | disposition home or self-care (01) ==
LOC: RAD 09:31
PROVIDERS: PCP Family Medicine; Visit Provider Family Medicine
DX: R91.8 Other nonspecific abnormal finding of lung field (principal); R59.0 Localized enlarged lymph nodes
CPT/HCPCS: 71260

== ENCOUNTER 2025-06-06 11:45 | Outpatient (CLI) | payer MEDICAID, SELFPAY ==
[2025-06-06 12:26] LABS: Hematocrit 42.7 % (36-47); Hemoglobin 14.20 g/dL (11.27-16.99); Mean Corpuscular HGB Conc 33.3 g/dL (30-55); Mean Corpuscular Hemoglobin 29.5 pg (27-33); Mean Corpuscular Volume 88.8 fl (85-98); Nucleated Red Blood Cells % 0 %; Platelet Count 305 10^3/cmm (157-399); Red Blood Count 4.81 10^6/uL (3.85-5.65); White Blood Count 13.46 10^3/uL (3.29-11.43)
== END 2025-06-06 11:46 | disposition home or self-care (01) ==
PROVIDERS: PCP Family Medicine; Visit Provider Internal Medicine
DX: Z01.89 Encounter for other specified special examinations (principal)
CPT/HCPCS: 36415; 85025

== ENCOUNTER 2025-07-27 16:05 | Outpatient (CLI) | payer MEDICAID, SELFPAY ==
--- NOTE | 2025-07-27 16:00 | MR_ITS ---
WS: [id number] MRI LUMBAR SPINE WITH CONTRAST TECHNIQUE: Sagittal T1, T2 and STIR imaging. Axial T1 and T2 imaging. Post gadolinium imaging was obtained. CLINICAL INFORMATION: back pain/ r/o infection COMPARISON: None. FINDINGS: Mild lumbar curve. No acute compression. No high-grade central canal stenosis. No abnormal gadolinium enhancement. No evidence of discitis or infection. L1-L2: Mild facet arthropathy. Spinal canal foramina are patent. L2-L3: Mild annular bulging. Mild facet arthropathy. Spinal canal and foramen are patent. L3-L4: Mild annular bulging. Slight narrowing LEFT subarticular recess. Mild LEFT foraminal narrowing. Mild facet arthropathy. L4-L5: Mild disc bulging with narrowing of the LEFT greater than RIGHT subarticular recess. Slight impingement traversing LEFT L5 nerve root. Mild LEFT greater than RIGHT foraminal narrowing. Mild to moderate facet arthropathy. L5-S1: Mild annular bulging. Mild facet arthropathy. Spinal canal and foramen are patent. Visualized pelvic bony structures: Normal. Paravertebral soft tissues: Normal. MR/MR lumbar spine wo/w con [id number] IMPRESSION: 1. Mild lumbar curve. No acute compression. No significant central canal steno sis. 2. No evidence of discitis or infection. 3. Slight impingement traversing LEFT L5 nerve root in the LEFT L4-5 subarticu lar recess. 4. Mild to moderate facet arthropathy L4-L5 and L5-S1.
[2025-07-27] MEDS: gadobenate dimeglumine 20 mL vial 15 ML IV (16:50)
== END 2025-07-27 16:06 | disposition home or self-care (01) ==
LOC: RAD 16:05
PROVIDERS: PCP Family Medicine; Visit Provider Family Medicine
DX: B40.9 Blastomycosis, unspecified (principal); M54.9 Dorsalgia, unspecified; M54.17 Radiculopathy, lumbosacral region; M46.96 Unspecified inflammatory spondylopathy, lumbar region; M47.896 Other spondylosis, lumbar region; M51.369 Other intervertebral disc degeneration, lumbar region without mention of lumbar back pain or lower extremity pain; M48.061 Spinal stenosis, lumbar region without neurogenic claudication; M51.379 Other intervertebral disc degeneration, lumbosacral region without mention of lumbar back pain or lower extremity pain; M47.897 Other spondylosis, lumbosacral region
CPT/HCPCS: 72158; A9577

== ENCOUNTER 2025-09-06 12:07 | Outpatient (CLI) | payer MEDICAID, SELFPAY ==
--- NOTE | 2025-09-06 12:13 | CTR_ITS ---
PROCEDURE INFORMATION: Exam: CT Chest Without Contrast; Diagnostic Exam date and time: 09/06/2025 12:40 PM Age: 29 years old Clinical indication: Condition or disease; Lung condition and disease; Follow up pulmonary blastomycosis TECHNIQUE: Imaging protocol: Diagnostic computed tomography of the chest without contrast. Radiation optimization: All CT scans at this facility use at least one of these dose optimization techniques: automated exposure control; mA and/or kV adjustment per patient size (includes targeted exams where dose is matched to clinical indication); or iterative reconstruction. COMPARISON: CT chest w con* [id number] 12/08/2024 9:53 AM RADIATION DOSE METRICS: Total DLP (mGy-cm): 242.95 FINDINGS: Lungs: Mild paraseptal emphysema. Significantly improved and presumably resolved medial right lower lobe consolidative lesion with linear residual scarring Pleural spaces: No pneumothorax. No pleural effusion. Heart: Within normal limits. Lymph nodes: Within normal limits. Vasculature: Within normal limits. No coronary artery calcification. Liver: Calcification along the posterior peripheral liver. Bones/joints: Within normal limits. Soft tissues: Unremarkable. CT/CT chest wo con [id number] IMPRESSION: Mild residual right lower lobe opacities may represent scarring.
== END 2025-09-06 12:08 | disposition home or self-care (01) ==
LOC: RAD 12:08
PROVIDERS: PCP Family Medicine; Visit Provider Internal Medicine
DX: B40.2 Pulmonary blastomycosis, unspecified (principal); R91.8 Other nonspecific abnormal finding of lung field
CPT/HCPCS: 71250